=== PATIENT | female | born 2005 | race American Indian/Alaskan Native ===

== ENCOUNTER 2024-09-24 19:26 | Emergency (ER) | payer MEDICAID | END 2024-09-24 20:18 | disposition home or self-care (01) | LOC: DL.ED 19:26 | DX: S90.32XA Contusion of left foot, initial encounter (principal); W00.0XXA Fall on same level due to ice and snow, initial encounter | CPT/HCPCS: 99283 ==

== ENCOUNTER 2025-03-10 07:24 | Emergency (ER) | payer MEDICAID | END 2025-03-10 07:53 | disposition left against medical advice (07) | LOC: DL.ED 07:24 | DX: Z53.21 Procedure and treatment not carried out due to patient leaving prior to being seen by health care provider (principal) ==